=== PATIENT | male | born 1970 | race Caucasian/White ===

== ENCOUNTER 2018-07-15 14:03 | Emergency (ER) | payer SELFPAY ==
[2018-07-15 14:10] VITALS: BP 145/80
--- NOTE | 2018-07-15 14:16 | EDPHY ---
H & P Stated Complaint: l knee injury after jumping off a ledge Time Seen by Provider: 07/15/18 14:04 HPI/ROS: CHIEF COMPLAINT: Left knee injury HISTORY OF PRESENT ILLNESS: 48-year-old male visiting from [place] arrives via ambulance after he was hiking on the right large trail. He jumped off of a approximately 3 ft rock, landed and noticed his patella sublux laterally. He is able to reduce this himself. EMS was called as he was unable to ambulate and bystander had concerns over possible seizure activity however patient denies this. The patient's only complaint is left knee pain and was unable to ambulate. He necessitated mountain rescue extrication services. He denies: Head injury, seizure disorder history, alcohol or drug use, back pain, calcaneus or foot pain REVIEW OF SYSTEMS: 10 systems reviewed and negative with the exception of the elements mentioned in the history of present illness PAST MEDICAL/SURGICAL HISTORY: no anticoagulant use, no relevant medical/ surgical history SOCIAL HISTORY: denies alcohol use at time of incident. Visiting from [place] returning in 2 days PHYSICAL EXAM 1) GENERAL: Well-developed, well-nourished, alert and oriented Answering questions appropriately. 2) HEAD: Normocephalic, atraumatic 3) HEENT: Pupils equal, round, reactive to light bilaterally. Negative Horners. Nasopharynx, oropharynx, clear. No deformity or angulation of nose. No septal hematoma. No rhinorrhea. No oral trauma. Ears bilaterally with normal tympanic membranes. No hemotympanum. No fluid or blood in the external auditory canal. No raccoon eyes. No Caban sign. Teeth are normally aligned with no gross malocclusion, TMJ bilaterally nontender, facial bones nontender including the zygomatic arch, maxilla mandible. 4) NECK: No cervical collar is on. Posterior cervical spine is nontender, no stepoff, no effusion. Full range of motion which does not elicit any midline cervical spine pain, no posterior midline tenderness, no step-off. 5) LUNGS: Clear to auscultation bilaterally, no wheezes, no rhonchi, no retractions. No obvious signs of trauma. No chest wall pain. No flaring, no grunting. Moving symmetrically. No crepitus. 6) HEART: [Regular rate and rhythm, 7) ABDOMEN: No guarding, no rebound, no focal tenderness, no peritoneal signs, no signs of trauma, no ecchymosis 8) MUSCULOSKELETAL: Left lower extremity: Tender to palpation left knee with normal anatomic landmarks, normally seated patella. Limited range of motion secondary to pain. No visible signs of trauma. Effusion is noted. No gross instability. Proximally and distally nontender. Soft compartments. DP PT pulses present and brisk. The calcaneus and foot are nontender. The acetabulum has no pain with range of motion including axial loading. 9) BACK: No midline vertebral tenderness, no fluctuance, no step-off, no obvious trauma, no visual or palpable abnormality. 10) SKIN: No laceration. No abrasion DIFFERENTIAL DIAGNOSIS: In no particular order including but not limited to fracture, sprain, strain, dislocation, subluxation - Personal History Current Tetanus Diphtheria and Acellular Pertussis (TDAP): Unsure - Medical/Surgical History Other PMH: high cholesteral - Social History Smoking Status: Never smoked Constitutional: Initial Vital Signs Temperature (C) 36.8 C 07/15/18 14:07 Heart Rate 83 07/15/18 14:07 Respiratory Rate 16 07/15/18 14:07 Blood Pressure 145/80 H 07/15/18 14:07 O2 Sat (%) 94 07/15/18 14:07 O2 Delivery Mode Room Air Allergies/Adverse Reactions: No Known Allergies Allergy (Unverified 07/15/18 14:07) Home Medications: Medication Instructions Recorded Atorvastatin Calcium 07/15/18 Hydrocodone/APAP 5/325 [[place] 1 tab PO Q6 PRN #7 tab 07/15/18 5/325 (RX)] Medical Decision Making ED Course/Re-evaluation: Re-examination with serial exams. Discussed his imaging results. He is note to have a tibial spine fracture. No evidence of patellar subluxation, no evidence of knee dislocation, no fracture. Patient I discussed limitations of x -ray of the knee. Specifically he has been informed that non osseous injury is not ruled out at this time. He is visiting from [place]. I do not think that emergent MRI indicated at this time as I think that he can be followed up with orthopedic surgeon in [place] and have more advanced imaging performed there. He has been given copies of his x-rays, knee immobilizer, crutches, recommend follow up with Orthopedics when he returns home in 2 days. He is agreeable with this plan. Patient feels comfortable being discharged. All questions and concerns addressed by myself. Patient given my usual and customary discharge precautions and instructions regarding their clinical impression. Care of patient under supervision of secondary supervising physician Dr Ng . Departure - Departure Disposition: Home, Routine, Self-Care Clinical Impression: Subluxation of left patella, Fracture of tibial spine, closed Condition: Good Instructions: Patellar Dislocation (ED) Additional Instructions: Return to the ER immediately if you experience discoloration, have worsening pain, numbness, tingling, or any other symptoms that concern you. If you received x-rays in the emergency department today, be advised, that ligamentous , tendon, muscular, and other non-bony injury cannot be fully ruled out. Try to keep your affected extremity elevated above the level of your chest, and keep cold packs on the affected area, for the next 48 hours. Adult Pain & Fever Control: We recommend Acetaminophen (Tylenol) and Ibuprofen (Motrin,Advil) for pain and fever control. When fever is high or pain severe, both drugs can be used at the same time, but at different intervals. Please note the time differences. Your dose is: Acetaminophen [650]mg every 4 to 6 hours Ibuprofen 600mg every 6 hours with food Referrals: Faraz Cam MD [Medical Doctor] - 2-3 days, call for appt. (You may also follow up with an orthopedic surgeon in your hometown) Prescriptions: Hydrocodone/APAP 5/325 [[place] 5/325 (RX)] 1 tab PO Q6 PRN #7 tab PRN Reason: Pain, Severe
== END 2018-07-15 15:14 | disposition home or self-care (01) ==
DX: S83.002A Unspecified subluxation of left patella, initial encounter (principal); S82.112A Displaced fracture of left tibial spine, initial encounter for closed fracture; W17.89XA Other fall from one level to another, initial encounter; Y93.01 Activity, walking, marching and hiking; Y92.828 Other wilderness area as the place of occurrence of the external cause